=== PATIENT | male | born 1960 | race Hispanic/Latino ===

== ENCOUNTER 2020-02-06 12:34 | Emergency (ER) | payer OTHER ==
[~2020-02-06] VITALS: Ht 180.3 cm; Wt 72.0 kg
[2020-02-06] MEDS ORDERED: KEFLEX500 M1 PO (13:14)
[2020-02-06 13:30] VITALS: BP 143/84
== END 2020-02-06 13:30 | disposition home or self-care (01) | DRG 603 ==
LOC: ED 12:34
DX: L03.115 Cellulitis of right lower limb (principal); S80.811A Abrasion, right lower leg, initial encounter; W22.09XA Striking against other stationary object, initial encounter; Y92.007 Garden or yard of unspecified non-institutional (private) residence as the place of occurrence of the external cause

== ENCOUNTER 2022-12-14 11:39 | Emergency (ER) | payer OTHER ==
[~2022-12-14] VITALS: Ht 180.3 cm; Wt 67.6 kg
[~2022-12-14 11:39] MED LIST: KEFLEX500 M1 PO
[2022-12-14] MEDS ORDERED: OMNI-PAC300 MG PO (11:49)
[2022-12-14 11:55] VITALS: BP 137/77
== END 2022-12-14 12:11 | disposition home or self-care (01) | DRG 603 ==
LOC: ED 11:39
DX: L03.115 Cellulitis of right lower limb (principal)